=== PATIENT | female | born 1955 | race Caucasian/White ===

== ENCOUNTER → 2020-06-24 | Outpatient (CLI) | payer MEDICARE | END | disposition home or self-care (01) | LOC: RAD 08:33 | PROVIDERS: ATTEND Neurological Surgery | DX: M47.812 Spondylosis without myelopathy or radiculopathy, cervical region (principal); M47.815 Spondylosis without myelopathy or radiculopathy, thoracolumbar region; M54.9 Dorsalgia, unspecified; M43.8X4 Other specified deforming dorsopathies, thoracic region; M81.0 Age-related osteoporosis without current pathological fracture; M41.85 Other forms of scoliosis, thoracolumbar region; M48.02 Spinal stenosis, cervical region; M48.55XA Collapsed vertebra, not elsewhere classified, thoracolumbar region, initial encounter for fracture; M48.061 Spinal stenosis, lumbar region without neurogenic claudication | CPT/HCPCS: 72050; 72072; 72082; 72110; 72141; 72146; 72148 ==